=== PATIENT | female | born 1980 | race Caucasian/White ===

== ENCOUNTER 2016-11-08 08:49 | Emergency (ER) | payer OTHER ==
[~2016-11-08] VITALS: Ht 167.6 cm; Wt 77.1 kg
[2016-11-08] MEDS ORDERED: AUGMENTIN 875-1 EACH PO (09:16)
[2016-11-08] MEDS ORDERED: NEOMYCIN-POLYMY10 M1 AD (09:17)
== END 2016-11-08 10:53 | disposition home or self-care (01) ==
LOC: ED 08:49
DX: O46.91 Antepartum hemorrhage, unspecified, first trimester (principal); Z98.51 Tubal ligation status; Z88.8 Allergy status to other drugs, medicaments and biological substances; Z79.899 Other long term (current) drug therapy; Z79.2 Long term (current) use of antibiotics; Z3A.01 Less than 8 weeks gestation of pregnancy
CPT/HCPCS: 84702; 85025; 99284

== ENCOUNTER 2016-11-22 09:02 | Emergency (ER) | payer OTHER ==
[~2016-11-22] VITALS: Ht 167.6 cm; Wt 77.1 kg
[~2016-11-22 09:02] MED LIST: AUGMENTIN 875-1 EACH PO; NEOMYCIN-POLYMY10 M1 AD
[2016-11-22] MEDS ORDERED: PRENATAL TABLE1 EAC1 PO (09:39)
== END 2016-11-22 14:35 | disposition home or self-care (01) ==
LOC: ED 09:02
DX: O03.9 Complete or unspecified spontaneous abortion without complication (principal); Z98.51 Tubal ligation status; Z88.8 Allergy status to other drugs, medicaments and biological substances; Z79.899 Other long term (current) drug therapy
CPT/HCPCS: 36415; 76801; 76817; 84702; 85025; 99284